=== PATIENT | female | born 1945 | race Caucasian/White ===

== ENCOUNTER 2019-06-09 10:21 | Inpatient (IN) | payer BC, MEDICARE ==
[2019-06-09] MEDS ORDERED: Azithromycin 500 MG VIAL ONE (10:53)
[2019-06-09] MEDS ORDERED: Morphine 4 MG/ML VIAL ONE (11:05)
[2019-06-09] MEDS ORDERED: Fentanyl 100 MCG/2 ML VIAL ONE ×2 (12:02→15:07)
[2019-06-09] MEDS ORDERED: Diabetic Tussin 200 MG/10 ML UDCUP PO PRN (13:22)
[2019-06-09] MEDS ORDERED: cloNIDine 0.1 MG TAB PO PRN (13:22)
[2019-06-09] MEDS ORDERED: Dextrose 5% in Water 1,000 ML IV PRN (13:22)
[2019-06-09] MEDS ORDERED: Calcium Carbonate 500 MG ChewTAB PO PRN (13:22)
[2019-06-09] MEDS ORDERED: Zolpidem Tartrate 5 MG TAB PO PRN (13:22)
[2019-06-09] MEDS ORDERED: Bisacodyl 10 MG SUPP PR PRN (13:22)
[2019-06-09] MEDS ORDERED: HumaLOG 300 UNITS/3 ML VIAL SC PRN (13:22)
[2019-06-09] MEDS ORDERED: Loperamide HCl 2 MG CAP PO PRN (13:22)
[2019-06-09] MEDS ORDERED: Acetaminophen 325 MG TAB PO PRN (13:22)
[2019-06-09] MEDS ORDERED: Loratadine 10 MG TAB PO PRN (13:22)
[2019-06-09] MEDS ORDERED: Cepastat Lozenges 1 LOZ PO PRN (13:22)
[2019-06-09] MEDS ORDERED: Senokot S 8.6-50 MG TAB PO PRN (13:22)
[2019-06-09] MEDS ORDERED: Sodium Chloride 0.65% Nasal 44 ML BOT EA NARE PRN (13:22)
[2019-06-09] MEDS ORDERED: Dextrose 50% Abboject 50 ML SYRINGE SLOW IVP PRN (13:22)
--- NOTE | 2019-06-09 13:46 | HP ---
PRIMARY CARE PHYSICIAN: Dr. Osmany Lantigua. REASON FOR ADMISSION: Transferred from [facility] for pneumonia, sepsis. HISTORY OF PRESENT ILLNESS: A 74-year-old female, who has underlying history of diabetes type 2, diabetic nephropathy and neuropathy as well as hypertension and dyslipidemia, who was taken to [facility] Emergency Room earlier today. The patient reports that around 3:00 a.m. last night, she woke up with chest pain, which was right-sided. The patient was not able to take deep breath. She was feeling shortness of breath. Chest pain was constant about 11/10 in intensity, which was increasing with respiration, associated with mild nausea. The patient initially refused to go to emergency room, but finally she agreed to go to local emergency room around 6:00 a.m. At [facility] Emergency Room, the patient had routine blood test done as well as investigation done. She had a chest x-ray, which showed cardiomegaly and left basilar lung opacity and right lower lung granuloma. She had CT chest without contrast due to renal insufficiency, which showed pericardial thickening, chronic interstitial lung changes and granulomatous disease. Routine blood test showed leukocytosis with left shift and creatinine was 1.88. The patient had very slightly elevated D-dimer, but the patient denies any lower extremity edema or calf tenderness. She does not have any immobilization. She does not have any hemoptysis. She does not have any upper or lower respiratory infection in the recent past. The patient also denies any urinary tract infection symptoms. She denies any constipation, diarrhea, melena, or hematochezia. Initially at [place] [facility], she was given pain medicine and empiric antibiotic therapy was given and Lovenox 1 mg/kg was also given. Fentanyl did not reduce her pain, but morphine reduced her pain from 11 to 8. Nitroglycerin did not help her pain at all. HOME MEDICATIONS: The patient's home medication is not verified, but the patient is on following medication as per report; 1. Fosamax 70 mg weekly. 2. Allopurinol 300 mg daily. 3. Lipitor 20 mg daily. 4. Vitamin D3, 50,000 units weekly. 5. Vitamin B12 daily. 6. Bentyl p.r.n. basis. 7. Trulicity injection every week. 8. Lasix 40 mg daily. 9. Gabapentin 300 mg p.o. twice daily. 10. Insulin as per sliding scale. 11. Xalatan eye drops. 12. Toprol-XL 50 mg daily. 13. Tramadol p.r.n. basis. 14. Maxzide one tablet daily. 15. Ambien 10 mg at night. REVIEW OF SYSTEMS: CONSTITUTIONAL: Negative for weight loss or gain, ability to conduct usual activities. SKIN: Negative for rash, itching. EYES: Negative for double vision, pain. ENT/MOUTH: Negative for nose bleeding, neck stiffness, pain, tenderness. CARDIOVASCULAR: Negative for palpitations, dyspnea on exertion, orthopnea. RESPIRATORY: Negative for shortness of breath, wheezing, cough, hemoptysis, fever or night sweats. GASTROINTESTINAL: Negative for poor appetite, abdominal pain, heartburn, nausea, vomiting, constipation, or diarrhea. GENITOURINARY: Negative for urgency, frequency, dysuria, nocturia. MUSCULOSKELETAL: Negative for pain, swelling. NEUROLOGIC/PSYCHIATRIC: Negative for anxiety, depression. ALLERGY/IMMUNOLOGIC: Negative for skin rash, bleeding tendency. Please see my HPI for pertinent positives and negatives. All other review of systems reviewed and negative except as mentioned in HPI. EMERGENCY ROOM COURSE: The patient is given nitroglycerin 0.4 mg, fentanyl 25 mcg, Ringer lactate 2 L, Rocephin 1 g, Lovenox 80 mg, morphine 4 mg, Zofran 4 mg. PAST MEDICAL HISTORY: History of bladder cancer, history of bilateral cataract, diabetes type 2, glaucoma, hypertension, dyslipidemia, osteoarthritis, diabetic neuropathy, diabetic nephropathy, chronic kidney disease stage 3, osteopenia/osteoporosis, hyperuricemia. PAST SURGICAL HISTORY: Bladder surgery x2, hernia repair, hysterectomy, tonsillectomy, umbilical hernia repair x3. PAST PSYCHIATRIC HISTORY: Reviewed and negative. FAMILY HISTORY: The patient is adopted and that is why she does not know any of her family history. ALLERGIES: IODINATED CONTRAST MEDIA, LYRICA. SOCIAL HISTORY: The patient is . She is former smoker. She denies any other illicit drug abuse. She denies any alcohol. PHYSICAL EXAMINATION: VITAL SIGNS: On arrival, blood pressure 168/67, pulse 114, respiratory rate 24, temperature 97.5, saturation 94%. Weight 185 pounds. GENERAL: The patient is currently alert and awake, no obvious acute distress. HEENT: Head; normocephalic and atraumatic. Eyes; pupils round and reactive to light. Extraocular muscle intact. ENT, oropharynx within normal limits. Moist mucous membranes. No oral lesion. No pharyngeal erythema. No exudate. NECK: Supple. No JVD. No thyromegaly. No carotid bruit. No jugular venous distention. LUNGS: Air entry reduced at the left base, but no obvious rales. No obvious rhonchi or wheezing heard. CARDIAC: S1 and S2 appears regular. No significant murmur. No gallop. No rub. ABDOMEN: Soft. Obesity present. Bowel sounds are present. Nontender. Nondistended. No organomegaly. No mass. No suprapubic tenderness. BACK: Unremarkable. No CVA tenderness. EXTREMITIES: Upper extremities; passive movement of all joints are normal. Lower extremities, no edema. Good distal pulsation. No calf tenderness. NEUROLOGIC: Nonfocal examination. SKIN: No skin rash. PSYCHIATRIC: Normal affect. LABORATORY DATA: Significant labs; blood test done at [facility]. EKG showed normal sinus rhythm, nonspecific ST-T changes. Sinus tachycardia noted. Chest x-ray showing cardiomegaly, left basilar lung opacity. CT chest showing pericardial thickening, chronic interstitial changes, and granulomatous disease. BMP; sodium 140, potassium 4.3, chloride 102, carbon dioxide 27, BUN 28, creatinine 1.88, glucose 110, calcium 9.5. LFT; AST 9, ALT 11, alkaline phosphatase 80, bilirubin 0.6, protein 7.4, albumin 4.1, lipase 20. Troponin less than 0.01. BNP 74. Lactic acid 2.9. INR 0.9. GFR 30. D-dimer 0.55. ASSESSMENT AND PLAN: 1. Chest pain. The patient has pleuritic chest pain on the right side. Her chest x-ray showing left lower lobe opacity that cannot explain her right-sided pain. CT chest also showing pericardial thickening and suspecting pericarditis. We will check CRP and ESR. We are going to treat empirically with pericarditis as well as we are also going to treat empirically for left lower lobe pneumonia and we will rule out underlying thromboembolic disorder. 2. Left lower lobe pneumonia. The patient's chest x-ray is showing left basilar opacity. She has leukocytosis, lactic acidosis, though the patient does not have any chronic recent upper or lower respiratory symptoms, but she has postnasal drip, community-acquired pneumonia is likely. We will cover with Rocephin 1 g q.24 hours and levofloxacin 750 mg every other day based on renal dose. 3. Pericarditis. The patient has pericardial thickening on a CT chest. We will obtain echocardiography and we will treat empirically with colchicine 0.6 mg p.o. daily. 4. Rule out thromboembolic disorder. The patient also has possibility of a pulmonary embolism, though less likely based on overall picture, but given tachycardia, pleuritic chest pain, and shortness of breath. We will rule out that possibility. Because of renal function and iodine allergy, we cannot do CT angiography and that is why we will obtain V/Q scan, lower extremity ultrasound, and echocardiography. If any abnormal finding supports or suspects diagnosis of pulmonary embolism, in that case we will consider Pulmonary consultation if needed. 5. Diabetes type 2. We will continue the patient's home medication, insulin as per sliding scale per protocol. Diabetic diet will be given. 6. Glaucoma. We will continue Xalatan eye drops as per home dosage. 7. Hypertension. We will continue Toprol-XL as per home dosage. 8. Dyslipidemia. We will continue Lipitor 20 mg p.o. at bedtime. 9. Hyperuricemia. We will check uric acid tomorrow and continue allopurinol as per home dosage. 10. Chronic kidney disease stage 3. We will repeat BMP tomorrow. We will give her gentle IV fluid at 70 mL/h. 11. Deep venous thrombosis prophylaxis. Heparin 5000 units subcu twice daily. 12. GI prophylaxis. Pepcid 20 mg daily. 13. Code status: The patient is full code. The patient's is surrogate decision maker. Note: The patient already received Lovenox 1 mg/kg at [facility] and that is why we will start heparin from tomorrow for DVT prophylaxis. Job ID: [id number]
[2019-06-09] MEDS: cefTRIAXone\\ROCEPHIN 1 GM in Sodium Chloride 0.9% 100 ML IVPB SCH (17:47)
[2019-06-09] MEDS: Sodium Chloride 0.9% 1,000 ML IV SCH ×2 (17:49→22:58)
[2019-06-09 18:09] VITALS: BMI 38.1
[2019-06-09] MEDS: HYDROcodone/Acetaminophen 5/325 mg Tablet PO PRN ×2 (18:09→22:57)
[2019-06-09] MEDS: HumaLOG 300 UNITS/3 ML VIAL SC PRN (18:42)
[2019-06-09 19:13] LABS: Bilirubin Negative (Negative); Blood, Urine 2+ (Negative); Clarity Turbid (Clear); Glucose, Urine (Dipstick) Normal (Negative); Leukocyte 500 Leu/uL (Negative); Nitrite Negative (Negative); Protein, Urine (Dipstick) 50 mg/dL (Neg-Trace); WBC/HPF Greater than 50 HPF (0-3)
[2019-06-09 19:19] LABS: Bacteria/HPF 2+ HPF (None Seen)
[2019-06-09] MEDS: Heparin 5,000 UNITS/ML VIAL SC SCH (21:17)
[2019-06-09] MEDS: Colchicine 0.6 MG TAB PO SCH ×2 (21:26→23:28)
[2019-06-10] MEDS: HYDROcodone/Acetaminophen 5/325 mg Tablet PO PRN (06:12)
[2019-06-10 06:22] LABS: #Lymphocytes 1.1 thou/uL (1.20-3.40); #Monocytes 1.8 thou/uL (0.11-0.59); #Neutrophils 13.1 thou/uL (1.40-6.50); %Eosinophils 0.3 % (0.0-10.0); %Neutrophils 81.7 % (42.0-75.0); Hemoglobin 11.9 g/dL (12.0-16.0); Mean Corpuscular HGB CONC 32.5 g/dL (32.0-36.0); Mean Corpuscular Hemoglobin 31.8 pg (27.0-31.0); Mean Corpuscular Volume 97.9 fL (78.0-98.0); Mean Platelet Volume 8.7 fL (7.4-10.4); Platelet Count 191 thou/uL (130-400); RBC Distribution Width 14.5 % (11.5-14.5); Red Blood Cell (RBC) Count 3.74 mill/uL (4.20-5.40)
[2019-06-10 06:38] LABS: ALT (SGPT) 11 U/L (8-55); AST (SGOT) 10 U/L (5-34); Albumin 3.8 g/dL (3.4-4.8); Alkaline Phosphatase 70 U/L (40-150); Anion Gap 16 mmol/L (10-20); BUN (Urea Nitrogen) 37 mg/dL (9.8-20.1); Bilirubin, Total 0.7 mg/dL (0.2-1.2); Calc. Creatinine Clearance 41 mL/min (70-130); Calcium 9.2 mg/dL (7.8-10.44); Carbon Dioxide 24 mmol/L (23-31); Chloride 101 mmol/L (98-107); Estimated GFR-MDRD 28; Globulin 2.9 g/dL (2.4-3.5); Glucose 215 mg/dL (83-110); Potassium 4.8 mmol/L (3.5-5.1); Protein, Total 6.7 g/dL (6.0-8.3); Sodium 136 mmol/L (136-145); Uric Acid 4.5 mg/dL (2.6-6.0)
[2019-06-10] MEDS ORDERED: Dicyclomine 20 MG TAB PO PRN (08:17)
[2019-06-10] MEDS ORDERED: Gabapentin 300 MG CAP PO PRN (08:17)
--- NOTE | 2019-06-10 08:24 | ULT ---
EXAM: Bilateral lower extremity venous duplex ultrasound with color and spectral Doppler imaging: HISTORY: Swelling and edema COMPARISON: None FINDINGS: Exam performed from the groin to the ankle including the visualized greater saphenous, common femoral , superficial femoral, profunda femoral, popliteal, trifurcation, and posterior tibial veins. There is phasic flow with normal compressibility and normal augmentation at all examined levels. No evidence for intraluminal thrombus. IMPRESSION: No evidence for deep venous thrombosis.
[2019-06-10] MEDS: Famotidine 20 MG TAB PO SCH (09:01)
[2019-06-10] MEDS: Allopurinol 300 MG TAB PO SCH (09:02)
[2019-06-10] MEDS: Saccharomyces boulardii 250 MG CAP PO SCH (09:02)
[2019-06-10] MEDS: Colchicine 0.6 MG TAB PO SCH ×3 (09:02→20:15)
[2019-06-10] MEDS: Atorvastatin Calcium 20 MG TAB PO SCH (09:03)
[2019-06-10] MEDS: Heparin 5,000 UNITS/ML VIAL SC SCH (09:03)
[2019-06-10] MEDS: HumuLIN 70/30 (300 UNITS/3 ML VIAL) SC SCH ×2 (09:05→20:18)
[2019-06-10] MEDS ORDERED: Metoclopramide HCl 10 MG/2 ML VIAL IVP PRN (09:34)
[2019-06-10] MEDS ORDERED: Furosemide 40 MG/4 ML VIAL SLOW IVP SCH ×2 (09:45→16:45)
--- NOTE | 2019-06-10 09:57 | PDOC.HOSPP ---
- Subjective Encounter Date: 06/10/19 Encounter Time: 08:00 Subjective: pt has dyspnea and has tachycardia, has pleuritic discomfort, no fever Patient seen and examined. No overnight events - Objective Vital Signs & Weight: Vital Signs (12 hours) Temp Pulse Resp BP BP Pulse Ox 06/10/19 08:50 98.3 F 123 H 22 H 148/80 H 91 L 06/10/19 04:11 92 L 06/10/19 04:00 97.5 F L 99 22 H 138/70 96 06/09/19 23:20 97.7 F 76 20 129/91 H 93 L Weight Weight 202 lb 8 oz I&O: 06/09/19 06/10/19 06/11/19 06:59 06:59 06:59 Intake Total 600 Output Total 600 Balance 0 Result Diagrams: 06/10/19 06:09 06/10/19 06:09 Additional Labs: Accuchecks 06/09/19 06/09/19 21:32 18:03 POC Glucose 278 H 241 H Radiology Reviewed by me: Yes EKG Reviewed by me: Yes (tachycardia) Hospitalist ROS - Review of Systems Constitutional: reports: weakness, malaise. denies: fever, chills, sweats, other Eyes: denies: pain, vision change, conjunctivae inflammation, eyelid inflammation, redness, other ENT: denies: ear pain, ear discharge, nose pain, nose discharge, nose congestion , mouth pain, mouth swelling, throat pain, throat swelling, other Respiratory: reports: cough, shortness of breath, SOB with excertion, pleuritic pain. denies: dry, hemoptysis, sputum, wheezing, other Cardiovascular: denies: chest pain, palpitations, orthopnea, paroxysmal noc. dyspnea, edema, light headedness, other Gastrointestinal: denies: nausea, vomitting, abdominal pain, diarrhea, constipation, melena, hematochezia, other Genitourinary: denies: dysuria, frequency, incontinence, hematuria, retention, other Musculoskeletal: denies: neck pain, shoulder pain, arm pain, back pain, hand pain, leg pain, foot pain, other - Medication Medications: Active Medications Generic Name Dose Route Start Last Admin Trade Name Freq PRN Reason Stop Dose Admin Hydrocodone Bitart/Acetaminophen 1 tab 06/09/19 13:22 06/10/19 06:12 [place] 5/325 PO 1 tab Q4H PRN Administration Moderate Pain (4-6) Allopurinol 300 mg 06/10/19 09:00 06/10/19 09:02 Zyloprim PO 300 mg DAILY NARINDER Administration Atorvastatin Calcium 20 mg 06/10/19 09:00 06/10/19 09:03 Lipitor PO 20 mg DAILY NARINDER Administration Colchicine 0.6 mg 06/09/19 21:00 06/10/19 09:02 Colchicine PO Not Given BID NARINDER Famotidine 20 mg 06/10/19 09:00 06/10/19 09:01 Pepcid PO 20 mg DAILY NARINDER Administration Heparin Sodium (Porcine) 5,000 units 06/09/19 21:00 06/10/19 09:03 Heparin SC 5,000 units BID NARINDER Administration Levofloxacin 750 mg/ Device 150 mls @ 100 mls/hr 06/09/19 17:00 06/09/19 18: 10 IVPB 150 mls Q2D@1700 NARINDER Administration Ceftriaxone Sodium 1 gm/ 100 mls @ 200 mls/hr 06/09/19 16:00 06/09/19 17:47 Sodium Chloride IVPB Not Given Q24HR NARINDER Insulin Human Isoph/Insulin Regular 60 units 06/10/19 09:00 06/10/19 09:05 Humulin 70/30 SC 60 unit BID NARINDER Administration Insulin Human Lispro 0 units 06/09/19 13:22 06/09/19 18:42 Humalog SC 4 units .MODERATE SLIDING SC PRN Administration Moderate Correctional Scale Metoprolol Succinate 50 mg 06/10/19 09:00 06/10/19 09:02 Toprol Xl PO 50 mg DAILY NARINDER Administration Saccharomyces Boulardii 250 mg 06/10/19 09:00 06/10/19 09:02 Florastor PO 250 mg DAILY NARINDER Administration - Exam General Appearance: NAD, awake alert Eye: PERRL, anicteric sclera ENT: normocephalic atraumatic, no oropharyngeal lesions Neck: supple, symmetric, no JVD Heart: RRR, no murmur, no gallops, no rubs Heart - other findings: tachycardia Respiratory: rales Respiratory - other findings: basal rales and reduced air entry Gastrointestinal: soft, non-tender, non-distended, normal bowel sounds, no palpable masses, no hepatomegaly, no splenomegaly Extremities: no cyanosis, no clubbing, 1+ LE edema Skin: normal turgor, no lesions, no rashes Neurological: CN's grossly intact, normal sensation to touch, no focal deficits Musculoskeletal: normal tone, normal strength, no muscle wasting Psychiatric: normal affect, normal behavior, A&O x 3 Hosp A/P (1) Acute respiratory failure with hypoxia Code(s): J96.01 - ACUTE RESPIRATORY FAILURE WITH HYPOXIA Status: Acute Plan: requiring oxygen (2) Community acquired bacterial pneumonia Code(s): J15.9 - UNSPECIFIED BACTERIAL PNEUMONIA Status: Acute Plan: on rocephin and levaquin (3) Pericarditis Code(s): I31.9 - DISEASE OF PERICARDIUM, UNSPECIFIED Status: Acute Qualifiers: Pericarditis type: idiopathic Chronicity: acute Qualified Code(s): I30.0 - Acute nonspecific idiopathic pericarditis Plan: on colchicine, cardiology consulted, echo pending (4) UTI (urinary tract infection) Status: Acute Plan: will send urine culture, on rocephin and levaquin (5) Anemia, normocytic normochromic Code(s): D64.9 - ANEMIA, UNSPECIFIED Status: Chronic (6) CKD (chronic kidney disease) stage 3, GFR 30-59 ml/min Code(s): N18.3 - CHRONIC KIDNEY DISEASE, STAGE 3 (MODERATE) Status: Chronic (7) Diabetes type 2, controlled Code(s): E11.9 - TYPE 2 DIABETES MELLITUS WITHOUT COMPLICATIONS Status: Chronic (8) Diabetic neuropathy Code(s): E11.40 - TYPE 2 DIABETES MELLITUS WITH DIABETIC NEUROPATHY, UNSP Status: Chronic (9) Dyslipidemia Code(s): E78.5 - HYPERLIPIDEMIA, UNSPECIFIED Status: Chronic (10) Glaucoma Code(s): H40.9 - UNSPECIFIED GLAUCOMA Status: Chronic (11) Hypertension Code(s): I10 - ESSENTIAL (PRIMARY) HYPERTENSION Status: Chronic (12) Hyperuricemia Code(s): E79.0 - HYPERURICEMIA W/O SIGNS OF INFLAM ARTHRIT AND TOPHACEOUS DIS Status: Chronic (13) Obesity (BMI 30-39.9) Code(s): E66.9 - OBESITY, UNSPECIFIED Status: Chronic - Plan old records reviewed/req, continue antibiotics, respiratory therapy, incentive spirometry, DVT proph w/heparin home medication has been reconciled medication reviewed as above symptomatic treatment will give one dose of lasix to help with her dyspnea V/Q scan and echo pending continue empiric antibiotic and follow culture cardiology consult US leg is negative get chest xray
--- NOTE | 2019-06-10 12:19 | RAD ---
Exam: Chest 2 views: HISTORY: Dyspnea COMPARISON: 09/26/2009 FINDINGS: Cardiomegaly with bilateral pleural effusions and bilateral mostly linear parenchymal changes in the mid and lower lung zones raising concern for vascular congestion and some acute edema. Stable nodule in the right lower lobe. No new confluent pneumonia. IMPRESSION: Cardiomegaly with bilateral pleural effusions and bilateral linear parenchymal changes possibly repre senting vascular congestion and some mild edema. No new confluent pneumonia. Old granuloma calcification in the right lower lobe.
[2019-06-10] MEDS ORDERED: Lorazepam 2 MG/ML VIAL SLOW IVP SCH (14:00)
[2019-06-10] MEDS: HumaLOG 300 UNITS/3 ML VIAL SC PRN (14:00)
[2019-06-10] MEDS: cefTRIAXone\\ROCEPHIN 1 GM in Sodium Chloride 0.9% 100 ML IVPB SCH (17:44)
--- NOTE | 2019-06-10 18:10 | NM ---
VQ SCAN: History: Chest pain. Technique: Ventilation perfusion scan was performed using 11.3 mCi Xenon 133 by inhalation. Ventilati on study performed with intravenous administration of 5.2 mCi Technetium 99M MAA. FINDINGS: Correlation is made with chest radiograph of same date. There is fairly homogeneous distribution in the lung anthony on ventilation/perfusion scans without mi smatched pleural based wedge shaped segmental or subsegmental perfusion defects. There is mild trace retention in the washout phase on both sides. IMPRESSION: Low probability for pulmonary embolism. POS: NEFTALY
[2019-06-10] MEDS: Apixaban 5 MG TAB PO SCH (20:16)
[2019-06-10] MEDS: Latanoprost 0.005% Ophth Soln 2.5 ml Bottle EA EYE SCH (21:40)
--- NOTE | 2019-06-10 22:08 | CON ---
DATE OF CONSULTATION: HISTORY OF PRESENT ILLNESS: The patient is a 74-year-old woman with a history of hypertension and diabetes mellitus, who presents with dyspnea and acute right -sided chest discomfort. The patient was in her usual state of health when she developed a severe right-sided chest discomfort' This began 2 days ago. The discomfort has been persistent. She states it is clearly worse when she takes a deep breath. The patient went to the [facility] and was referred here for further evaluation. The patient reports feeling dyspneic. The patient denies having any PND or orthopnea. PAST MEDICAL HISTORY: 1. Diabetes mellitus. 2. Hypertension. 3. Dyslipidemia. 4. History of osteoarthritis. 5. History of bladder carcinoma. 6. Chronic renal insufficiency. 7. Diabetes mellitus. 8. Glaucoma. PAST SURGICAL HISTORY: Hysterectomy, bladder surgery, tonsillectomy, and hernia repair. SOCIAL HISTORY: Former smoker. ALLERGIES: IODINE AND LYRICA. MEDICATIONS: See nursing list. FAMILY HISTORY: She is adopted. REVIEW OF SYSTEMS: Ten-point system otherwise unremarkable. PHYSICAL EXAMINATION: GENERAL: This is an obese woman, in mild distress. VITAL SIGNS: Blood pressure is 140/69, heart rate is 117. NECK: Full. LUNGS: Have crackles in the left base. HEART: RRR nl S1 S2 ABDOMEN: Distended. EXREMITIES: Mild bilateral edema. LABORATORY RESULTS: Sodium 136, potassium 4.8, chloride 101, bicarbonate 24, BUN 37, creatinine 1.8, glucose 215. White blood cell count 16.0, hematocrit 11.9, hematocrit 36.6, platelets 191. Her EKG reveals her to have sinus tachycardia with an otherwise unremarkable ECG. Her CT scan revealed evidence of possible pericardial thickening. PLAN: This patient presents with right-sided chest pain suggestive of pleurisy.This pain has been persistent for nearly 2 days. Her chest x-ray revealed possible infiltrate. The patient being treated with IV antibiotics. The patient also scheduled to undergo a V/Q scan to rule out pulmonary embolus. From a cardiac standpoint, we will review the patient's echocardiogram and see if there is evidence of pulmonary hypertension. Further recommendations will follow. Job ID: [id number] MTDD
[2019-06-11 05:58] LABS: #Eosinphils 0.1 thou/uL (0.0-0.7); #Lymphocytes 1.9 thou/uL (1.20-3.40); #Monocytes 1.6 thou/uL (0.11-0.59); #Neutrophils 11.7 thou/uL (1.40-6.50); %Basophils 0.1 % (0.0-1.0); %Eosinophils 0.4 % (0.0-10.0); %Lymphocytes 12.3 % (21.0-51.0); %Monocytes 10.3 % (0.0-10.0); %Neutrophils 76.9 % (42.0-75.0); Hemoglobin 11.7 g/dL (12.0-16.0); Mean Corpuscular HGB CONC 33.3 g/dL (32.0-36.0); Mean Corpuscular Hemoglobin 32.2 pg (27.0-31.0); Mean Corpuscular Volume 96.9 fL (78.0-98.0); Mean Platelet Volume 8.3 fL (7.4-10.4); Platelet Count 218 thou/uL (130-400); RBC Distribution Width 14.3 % (11.5-14.5); Red Blood Cell (RBC) Count 3.64 mill/uL (4.20-5.40); White Blood Cell (WBC) Count 15.2 thou/uL (4.8-10.8)
[2019-06-11 06:17] LABS: Anion Gap 14 mmol/L (10-20); BUN (Urea Nitrogen) 40 mg/dL (9.8-20.1); Calc. Creatinine Clearance 40 mL/min (70-130); Calcium 9.7 mg/dL (7.8-10.44); Carbon Dioxide 28 mmol/L (23-31); Chloride 99 mmol/L (98-107); Estimated GFR-MDRD 27; Glucose 61 mg/dL (83-110); Potassium 3.4 mmol/L (3.5-5.1); Sodium 138 mmol/L (136-145)
[2019-06-11] MEDS: Colchicine 0.6 MG TAB PO SCH ×2 (08:47→20:24)
[2019-06-11] MEDS: Atorvastatin Calcium 20 MG TAB PO SCH (08:47)
[2019-06-11] MEDS: Saccharomyces boulardii 250 MG CAP PO SCH (08:47)
[2019-06-11] MEDS: Apixaban 5 MG TAB PO SCH ×2 (08:47→20:24)
[2019-06-11] MEDS: Allopurinol 300 MG TAB PO SCH (08:47)
[2019-06-11] MEDS: Famotidine 20 MG TAB PO SCH (08:47)
[2019-06-11] MEDS: HumuLIN 70/30 (300 UNITS/3 ML VIAL) SC SCH ×2 (09:50→20:31)
[2019-06-11] MEDS: HumaLOG 300 UNITS/3 ML VIAL SC PRN (11:46)
--- NOTE | 2019-06-11 15:27 | PDOC.HOSPP ---
- Subjective Encounter Date: 06/11/19 Encounter Time: 15:24 Subjective: Wheezing, + SOB, feeling better with chest pain - Objective Vital Signs & Weight: Vital Signs (12 hours) Temp Pulse Resp BP BP Pulse Ox 06/11/19 11:41 99.3 F 96 22 H 140/61 94 L 06/11/19 08:40 98.7 F 99 22 H 147/63 H 94 L 06/11/19 04:00 98.1 F 107 H 24 H 145/56 H 92 L Weight Weight 202 lb 8 oz I&O: 06/10/19 06/11/19 06/12/19 06:59 06:59 06:59 Intake Total 600 1410 Output Total 600 2085 Balance 0 -675 Result Diagrams: 06/11/19 05:43 06/11/19 05:43 Additional Labs: Accuchecks 06/11/19 06/11/19 06/11/19 11:42 09:52 05:48 POC Glucose 195 H 169 H 62 L 06/10/19 06/10/19 06/10/19 20:39 17:56 05:29 POC Glucose 132 H 118 H 226 H Hospitalist ROS - Medication Medications: Active Medications Generic Name Dose Route Start Last Admin Trade Name Freq PRN Reason Stop Dose Admin Hydrocodone Bitart/Acetaminophen 1 tab 06/09/19 13:22 06/10/19 06:12 [place] 5/325 PO 1 tab Q4H PRN Administration Moderate Pain (4-6) Allopurinol 300 mg 06/10/19 09:00 06/11/19 08:47 Zyloprim PO 300 mg DAILY NARINDER Administration Apixaban 5 mg 06/10/19 21:00 06/11/19 08:47 Eliquis PO 5 mg BID NARINDER Administration Atorvastatin Calcium 20 mg 06/10/19 09:00 06/11/19 08:47 Lipitor PO 20 mg DAILY NARINDER Administration Colchicine 0.6 mg 06/09/19 21:00 06/11/19 08:47 Colchicine PO Not Given BID NARINDER Famotidine 20 mg 06/10/19 09:00 06/11/19 08:47 Pepcid PO 20 mg DAILY NARINDER Administration Gabapentin 300 mg 06/10/19 08:17 06/11/19 13:41 Neurontin PO 300 mg TID PRN Administration Pain Levofloxacin 750 mg/ Device 150 mls @ 100 mls/hr 06/09/19 17:00 06/09/19 18: 10 IVPB 150 mls Q2D@1700 NARINDER Administration Insulin Human Isoph/Insulin Regular 60 units 06/10/19 09:00 06/11/19 09:50 Humulin 70/30 SC 60 unit BID NARINDER Administration Insulin Human Lispro 0 units 06/09/19 13:22 06/11/19 11:46 Humalog SC 2 units .MODERATE SLIDING SC PRN Administration Moderate Correctional Scale Latanoprost 1 drop 06/10/19 21:00 06/10/19 21:40 Xalatan 0.005% Ophth Soln EA EYE 1 drp HS NARINDER Administration Metoclopramide HCl 5 mg 06/10/19 09:34 06/10/19 15:54 Reglan IVP 5 mg Q6H PRN Administration .PRN Metoprolol Succinate 50 mg 06/10/19 09:00 06/11/19 08:47 Toprol Xl PO 50 mg DAILY NARINDER Administration Saccharomyces Boulardii 250 mg 06/10/19 09:00 06/11/19 08:47 Florastor PO 250 mg DAILY NARINDER Administration - Exam General Appearance: awake alert Eye: PERRL, anicteric sclera ENT: normocephalic atraumatic, no oropharyngeal lesions, moist mucosa Neck: supple, symmetric, no JVD, no thyromegaly, no lymphadenopathy Heart: RRR, no murmur, no gallops, no rubs, normal peripheral pulses Respiratory: rales, wheezes Gastrointestinal: soft, non-tender, non-distended, normal bowel sounds Extremities: no cyanosis, no clubbing, no edema Skin: normal turgor, no lesions, no rashes Neurological: CN's grossly intact, normal sensation to touch, no weakness, no focal deficits, no new deficit Musculoskeletal: normal tone, normal strength, no muscle wasting Psychiatric: normal affect, normal behavior, A&O x 3 Hosp A/P - Plan plan discussed w/ family, continue antibiotics, dc IVF old records reviewed/req, continue antibiotics, respiratory therapy, incentive spirometry, DVT proph w/heparin Pneumonia with chest pain acute respiratory distress: V/Q scan negative and echo with reserved EF Chest Xray showing acute pulm edema US leg is negative continue empiric Levaquin stop Rocephin as urine cx are negative cardiology consult Start patient on [place] oxygen, lasix low dose and PRN breathing treatment, if no improvement will consider small dose steroids HTN: Continue home metoprolol Afib: Continue Metoprolol and Apixaban Diabetes: Undcpfic89/30 with accuchecks and SS JESSICA: TREND CREATININE, ITS SLOWLY INCREASING
[2019-06-11] MEDS ORDERED: Furosemide 20 MG/2 ML VIAL SLOW IVP SCH (16:00)
[2019-06-11] MEDS: Latanoprost 0.005% Ophth Soln 2.5 ml Bottle EA EYE SCH (20:25)
[2019-06-11] MEDS: traMADol HCl 50 MG TAB PO PRN (20:29)
[2019-06-11] MEDS: Guaifenesin DM 100-10/5 ML UDCUP PO PRN (23:05)
[2019-06-12] MEDS: HumuLIN 70/30 (300 UNITS/3 ML VIAL) SC SCH ×2 (09:16→22:18)
[2019-06-12] MEDS: Saccharomyces boulardii 250 MG CAP PO SCH (09:32)
[2019-06-12] MEDS: Allopurinol 300 MG TAB PO SCH (09:32)
[2019-06-12] MEDS: Famotidine 20 MG TAB PO SCH (09:33)
[2019-06-12] MEDS: Apixaban 5 MG TAB PO SCH ×2 (09:34→20:49)
[2019-06-12] MEDS: Colchicine 0.6 MG TAB PO SCH ×2 (09:34→22:03)
[2019-06-12] MEDS: Atorvastatin Calcium 20 MG TAB PO SCH (09:34)
[2019-06-12] MEDS ORDERED: Furosemide 20 MG/2 ML VIAL SLOW IVP SCH (12:15)
[2019-06-12] MEDS: Guaifenesin DM 100-10/5 ML UDCUP PO PRN (12:51)
[2019-06-12] MEDS: HumaLOG 300 UNITS/3 ML VIAL SC PRN ×2 (12:52→17:50)
--- NOTE | 2019-06-12 13:22 | PDOC.HOSPP ---
- Subjective Encounter Date: 06/12/19 Encounter Time: 13:20 Subjective: iMPROVED BREATHING WITH BREATHING TREATMENT AND A DOSE OF LASIX. dESATURATING WHEN WALKING WITHOUT oXYGEN DOWN TO 70% - Objective Vital Signs & Weight: Vital Signs (12 hours) Temp Pulse Pulse Pulse Pulse Resp BP 06/12/19 10:10 97 111 H 100 126/60 06/12/19 07:42 98.1 F 98 22 H 06/12/19 04:00 98.6 F 105 H 20 BP BP BP Pulse Ox Pulse Ox Pulse Ox Pulse Ox 06/12/19 10:10 128/64 93 L 70 L 91 L 06/12/19 07:42 144/62 H 98 06/12/19 04:00 129/58 L 93 L Weight Weight 202 lb 8 oz I&O: 06/11/19 06/12/19 06/13/19 06:59 06:59 06:59 Intake Total 1410 1550 Output Total 9745 1030 Balance -675 900 Result Diagrams: 06/11/19 05:43 06/11/19 05:43 Additional Labs: Accuchecks 06/12/19 06/12/19 06/12/19 11:22 09:09 05:34 POC Glucose 174 H 187 H 81 06/11/19 06/11/19 20:39 17:43 POC Glucose 205 H 197 H Hospitalist ROS - Medication Medications: Active Medications Generic Name Dose Route Start Last Admin Trade Name Freq PRN Reason Stop Dose Admin Hydrocodone Bitart/Acetaminophen 1 tab 06/09/19 13:22 06/10/19 06:12 [place]berry 5/325 PO 1 tab Q4H PRN Administration Moderate Pain (4-6) Albuterol/Ipratropium 3 ml 06/11/19 19:00 06/12/19 10:12 Duoneb NEB Not Given [id number] NARINDER Allopurinol 300 mg 06/10/19 09:00 06/12/19 09:32 Zyloprim PO 300 mg DAILY NARINDER Administration Apixaban 5 mg 06/10/19 21:00 06/12/19 09:34 Eliquis PO 5 mg BID NARINDER Administration Atorvastatin Calcium 20 mg 06/10/19 09:00 06/12/19 09:34 Lipitor PO 20 mg DAILY NARINDER Administration Colchicine 0.6 mg 06/09/19 21:00 06/12/19 09:34 Colchicine PO Not Given BID NARINDER Famotidine 20 mg 06/10/19 09:00 06/12/19 09:33 Pepcid PO 20 mg DAILY NARINDER Administration Furosemide 20 mg 06/12/19 12:15 06/12/19 12:58 Lasix SLOW IVP 06/12/19 14:15 20 mg NOW NARINDER Administration Gabapentin 300 mg 06/10/19 08:17 06/11/19 13:41 Neurontin PO 300 mg TID PRN Administration Pain Guaifenesin/Dextromethorphan 15 ml 06/09/19 13:22 06/12/19 12:51 Robitussin Dm PO 15 ml Q4H PRN Administration Cough Levofloxacin 750 mg/ Device 150 mls @ 100 mls/hr 06/09/19 17:00 06/11/19 16: 55 IVPB 150 mls Q2D@1700 NARINDER Administration Insulin Human Isoph/Insulin Regular 60 units 06/10/19 09:00 06/12/19 09:16 Humulin 70/30 SC 60 unit BID NARINDER Administration Insulin Human Lispro 0 units 06/09/19 13:22 06/12/19 12:52 Humalog SC 2 units .MODERATE SLIDING SC PRN Administration Moderate Correctional Scale Insulin Human Lispro 0 units 06/09/19 13:22 06/11/19 20:42 Humalog SC 2 unit .BEDTIME SLIDING SC PRN Administration Bedtime Correctional Scale Latanoprost 1 drop 06/10/19 21:00 06/11/19 20:25 Xalatan 0.005% Ophth Soln EA EYE 1 drp HS NARINDER Administration Metoclopramide HCl 5 mg 06/10/19 09:34 06/10/19 15:54 Reglan IVP 5 mg Q6H PRN Administration .PRN Metoprolol Succinate 50 mg 06/10/19 09:00 06/12/19 09:34 Toprol Xl PO 50 mg DAILY NARINDER Administration Saccharomyces Boulardii 250 mg 06/10/19 09:00 06/12/19 09:32 Florastor PO 250 mg DAILY NARINDER Administration Tramadol HCl 50 mg 06/10/19 08:17 06/11/19 20:29 Ultram PO 50 mg TID PRN Administration Pain - Exam General Appearance: awake alert General - other findings: MORBIDLY OBESE Eye: PERRL, anicteric sclera ENT: normocephalic atraumatic, no oropharyngeal lesions, moist mucosa Neck: supple, symmetric, no JVD, no thyromegaly, no lymphadenopathy Heart: RRR, no murmur, no gallops, no rubs, normal peripheral pulses Respiratory: rales, wheezes Gastrointestinal: soft, non-tender, non-distended, normal bowel sounds Extremities: no cyanosis, no clubbing, no edema Skin: normal turgor, no lesions, no rashes Neurological: CN's grossly intact, normal sensation to touch, no weakness, no focal deficits Musculoskeletal: normal tone, normal strength, no muscle wasting Psychiatric: normal affect, normal behavior, A&O x 3 Hosp A/P - Plan old records reviewed/req, continue antibiotics, respiratory therapy, incentive spirometry, DVT proph w/heparin Pneumonia with chest pain acute respiratory distress: V/Q scan negative and echo with reserved EF Chest Xray showing acute pulm edema US leg is negative continue empiric Levaquin stop Rocephin as urine cx are negative cardiology consult Start patient on [place] oxygen, lasix low dose and PRN breathing treatment, if no improvement will consider small dose steroids HTN: Continue home metoprolol Afib: Continue Metoprolol and Apixaban Diabetes: Apakxenq86/30 with accuchecks and SS JESSICA: TREND CREATININE, ITS SLOWLY INCREASING, will stop Lasix if required May require Oxygen for a short while, will consult SW if home Oxygen is required Possible DC in 1-2 days
[2019-06-12] MEDS: traMADol HCl 50 MG TAB PO PRN (15:17)
[2019-06-12] MEDS: Latanoprost 0.005% Ophth Soln 2.5 ml Bottle EA EYE SCH (20:50)
[2019-06-13] MEDS: traMADol HCl 50 MG TAB PO PRN ×2 (01:30→13:53)
[2019-06-13 05:30] LABS: Hemoglobin 11.6 g/dL (12.0-16.0); Mean Corpuscular HGB CONC 33.9 g/dL (32.0-36.0); Mean Corpuscular Hemoglobin 32.3 pg (27.0-31.0); Mean Corpuscular Volume 95.3 fL (78.0-98.0); Mean Platelet Volume 8.2 fL (7.4-10.4); Platelet Count 237 thou/uL (130-400); RBC Distribution Width 14.3 % (11.5-14.5); Red Blood Cell (RBC) Count 3.59 mill/uL (4.20-5.40); White Blood Cell (WBC) Count 10.6 thou/uL (4.8-10.8)
[2019-06-13 05:52] LABS: Anion Gap 18 mmol/L (10-20); BUN (Urea Nitrogen) 49 mg/dL (9.8-20.1); Calc. Creatinine Clearance 35 mL/min (70-130); Calcium 9.4 mg/dL (7.8-10.44); Carbon Dioxide 25 mmol/L (23-31); Chloride 99 mmol/L (98-107); Estimated GFR-MDRD 23; Glucose 160 mg/dL (83-110); Sodium 139 mmol/L (136-145)
[2019-06-13 05:56] LABS: Potassium 2.9 mmol/L (3.5-5.1)
[2019-06-13] MEDS ORDERED: Potassium Chloride 20 MEQ TAB PO SCH ×2 (07:15→14:45)
[2019-06-13] MEDS: Saccharomyces boulardii 250 MG CAP PO SCH (08:23)
[2019-06-13] MEDS: Famotidine 20 MG TAB PO SCH (08:23)
[2019-06-13] MEDS: Colchicine 0.6 MG TAB PO SCH ×2 (08:23→20:42)
[2019-06-13] MEDS: Atorvastatin Calcium 20 MG TAB PO SCH (08:23)
[2019-06-13] MEDS: Allopurinol 300 MG TAB PO SCH (08:23)
[2019-06-13] MEDS: Apixaban 5 MG TAB PO SCH ×2 (08:23→20:42)
[2019-06-13] MEDS: HumuLIN 70/30 (300 UNITS/3 ML VIAL) SC SCH ×2 (08:24→20:42)
[2019-06-13] MEDS ORDERED: Furosemide 20 MG/2 ML VIAL SLOW IVP SCH (09:00)
[2019-06-13] MEDS: HumaLOG 300 UNITS/3 ML VIAL SC PRN (11:50)
--- NOTE | 2019-06-13 12:46 | PQF ---
DATE: 06-13-19 ATTN: DR. LATRICE STEINER Please exercise your independent, professional judgment in responding to the clarification form. Clinical indicators are provided on the bottom of this form for your review Please check appropriate box(s) to clarify if the following diagnosis has been ruled in or ruled out: SEPSIS [ x ] Ruled in diagnosis [ x] Continue to treat [ ] Resolved [ ] Ruled out diagnosis [ ] Other diagnosis [ ] Unable to determine In addition, please specify: Present on Admission (POA): [x ] Yes [ ] No [ ] Unable to determine For continuity of documentation, please document condition throughout progress notes and discharge summary. Thank You. CLINICAL INDICATORS - SIGNS / SYMPTOMS / LABS: ER DX 06-09-19: SEVERE SEPSIS, PNEUMONIA, R/O PULMONARY EMBOLISM ER NOTE 06-09-19: LACTIC 2.9, ADMISSION OF PNEUMONIA VS PE AND POSSIBLE NEED FO VQ SCAN, GIVEN LOVENOX, ROCEPHIN, LR X 2517 ML BOLUS IN [place], NOTED TO BE TACHYCARDIC, WBC: 16.33 H&P: 06-09-19: TRANSFERRED FROM [facility], SEPSIS TEMP: 06-09-19: 99.2 06-11-19: 99.3 06-13-19: 99.6 PULSE: ER 06-09-19: 118, 114, 113, 110, 102 06-09-19: 106, 103 06-10-19: 123, 117, 101, 108 06-11-19: 107, 102 RR: ER 06-09-19: 24, 26, 22 06-09-19: 24 06-10-19: 22, 22, 22 -11-28: 22, 22, 22 WBC: 06-10-19: 16.0 06-11-19: 15.2 CRP: 06-10-19: 36.71 RISK FACTORS: H&P: 06-09-19: TRANSFERRED FROM [facility], SEPSIS PN DR. LYMAN 06-10-19: ACUTE PERICARDITIS, PNEUMONIA, UTI TREATMENTS: ER 06-09-19: NS IVF, AZITHROMYCIN IV MAR 06-09-19: LEVAQUIN IV (This form is maintained as a part of the permanent medical record) 2014 [employer]. All Rights Reserved Bailey Beke, RN [email or web address] Office: [phone] [facility]
--- NOTE | 2019-06-13 13:01 | PQF ---
DATE: 06-13-19 ATTN: DR. LATRICE STEINER Please exercise your independent, professional judgment in responding to the clarification form. Clinical indicators are provided on the bottom of this form for your review Please check appropriate box(s) to clarify if the following diagnosis has been ruled in or ruled out: ACUTE RESPIRATORY FAILURE WITH HYPOXIA [ x ] Ruled in diagnosis [ ] Continue to treat [ x] Resolved [ ] Ruled out diagnosis [ ] Other diagnosis [ ] Unable to determine In addition, please specify: Present on Admission (POA): [x ] Yes [ ] No [ ] Unable to determine For continuity of documentation, please document condition throughout progress notes and discharge summary. Thank You. CLINICAL INDICATORS - SIGNS / SYMPTOMS / LABS: ER NOTES 06-09-19: SOB, 94% ON RA, DX OF SEVERE SEPSIS, PNEUMONIA, R/O PULMONARY EMBOLISM H&P: 06-09-19: LLL PNEUMONIA PN DR. LYMAN 06-10-19: PT HAS DYSPNEA AND HAS TACHYCARDIA, ACUTE RESPIRATORY FAILURE WITH HYPOXIA, ACUTE CAP, ACUTE PERICARDITIS PN DR. WATT 06-11-19: WHEEZING, +SOB, PNEUMONIA WITH CHEST PAIN ACUTE RESPIRATORY DISTRESS RISK FACTORS: ER NOTE 06-09-19: PE R/O, SOB, PATIENT 94% ON 3L [place], L BASILAR OPACITY NOTED ON CHEST X-RAY PERFORMED IN [place], COULDN'T RULE OUT PNA VS VOLUME LOSS, COUGH ER NOTES 06-09-19: SOB, 94% ON RA, DX OF SEVERE SEPSIS, PNEUMONIA, R/O PULMONARY EMBOLISM TREATMENTS: ER NOTE 06-09-19: IVF NS, AZITHROMYCIN IV 06-11-19: DUONEB, LEVAQUIN 06-09-19 (This form is maintained as a part of the permanent medical record) 2014 [employer]. All Rights Reserved [email or web address] Office: [phone] [facility]
--- NOTE | 2019-06-13 13:20 | PQF ---
DATE: 06-13-19 ATTN: DR. LATRICE STEINER Please exercise your independent, professional judgment in responding to the clarification form. Clinical indicators are provided on the bottom of this form for your review Please check appropriate box(s) to clarify if the following diagnosis has been ruled in or ruled out: PULMONARY EMBOLISM [ ] Ruled in diagnosis [ ] Continue to treat [ ] Resolved [ x ] Ruled out diagnosis [ ] Other diagnosis [ ] Unable to determine In addition, please specify: Present on Admission (POA): [ ] Yes [ ] No [ ] Unable to determine For continuity of documentation, please document condition throughout progress notes and discharge summary. Thank You. CLINICAL INDICATORS - SIGNS / SYMPTOMS / LABS: ER NOTE 06-09-19: PE R/O, 94% ON RA, SOB, EVAL FOR CP; DX: SEVERE SEPSIS, PNEUMONIA, R/O PULMONARY EMBOLISM H&P 06-09-19: R/O THROMBOEMBOLIC DISORDER. THE PT ALSO HAS POSSIBILITY OF A PE , THOUGH LESS LIKELY BASED ON OVERALL PICTURE, BUT GIVEN TACHYCARDIA, PLEURITIC CP AND SOB RISK FACTORS: ER NOTE 06-09-19: PE R/O, 94% ON RA, SOB, EVAL FOR CP; DX: SEVERE SEPSIS, PNEUMONIA, R/O PULMONARY EMBOLISM TREATMENTS: H&P 06-09-19: BECAUSE OF RENAL FUNCTION AND IODINE ALLERGY, WE CANNOT DO CT ANGIOGRAPHY AND THAT IS WHY WE WILL OBTAIN V/Q SCAN, LE ULT, AND ECHO (This form is maintained as a part of the permanent medical record) 2014 [employer]. All Rights Reserved [email or web address] Office: [phone] [facility], [place]
--- NOTE | 2019-06-13 20:19 | PDOC.HOSPP ---
- Subjective Encounter Date: 06/13/19 Encounter Time: 14:20 Subjective: Generally feeling better. RODGER persists. No nausea or vomiting, tolerating decent oral intake. No CP/SOB. Sore LUE anticubital fossa area from prior IV site - Objective Vital Signs & Weight: Vital Signs (12 hours) Temp Pulse Pulse Pulse Resp BP BP 06/13/19 19:15 86 16 06/13/19 15:31 97.9 F 93 18 06/13/19 14:21 104 H 103 H 132/68 143/65 H 06/13/19 13:56 74 16 06/13/19 11:39 99.0 F 93 20 BP Pulse Ox 06/13/19 19:15 92 L 06/13/19 15:31 136/63 95 06/13/19 14:21 06/13/19 13:56 95 06/13/19 11:39 131/62 93 L Weight Weight 202 lb 8 oz I&O: 06/12/19 06/13/19 06/14/19 06:59 06:59 06:59 Intake Total 1550 1820 730 Output Total 2450 2240 1650 Balance -900 -420 -920 Result Diagrams: 06/13/19 04:38 06/13/19 04:37 Additional Labs: Accuchecks 06/13/19 06/13/19 06/13/19 17:03 10:42 05:44 POC Glucose 143 H 187 H 142 H 06/12/19 20:43 POC Glucose 161 H Hospitalist ROS - Medication Medications: Active Medications Generic Name Dose Route Start Last Admin Trade Name Freq PRN Reason Stop Dose Admin Hydrocodone Bitart/Acetaminophen 1 tab 06/09/19 13:22 06/10/19 06:12 [place]uffey 5/325 PO 1 tab Q4H PRN Administration Moderate Pain (4-6) Albuterol/Ipratropium 3 ml 06/11/19 19:00 06/13/19 19:15 Duoneb NEB 3 ml [id number] NARINDER Administration Allopurinol 300 mg 06/10/19 09:00 06/13/19 08:23 Zyloprim PO 300 mg DAILY NARINDER Administration Apixaban 5 mg 06/10/19 21:00 06/13/19 08:23 Eliquis PO 5 mg BID NARINDER Administration Colchicine 0.6 mg 06/09/19 21:00 09/04/19 08:23 Colchicine PO 0.6 mg BID NARINDER Administration Famotidine 20 mg 06/10/19 09:00 06/13/19 08:23 Pepcid PO 20 mg DAILY NARINDER Administration Gabapentin 300 mg 06/10/19 08:17 06/11/19 13:41 Neurontin PO 300 mg TID PRN Administration Pain Guaifenesin/Dextromethorphan 15 ml 06/09/19 13:22 06/12/19 12:51 Robitussin Dm PO 15 ml Q4H PRN Administration Cough Levofloxacin 750 mg/ Device 150 mls @ 100 mls/hr 06/09/19 17:00 06/13/19 16: 15 IVPB 150 mls Q2D@1700 NARINDER Administration Insulin Human Isoph/Insulin Regular 60 units 06/10/19 09:00 06/13/19 08:24 Humulin 70/30 SC 60 unit BID NARINDER Administration Insulin Human Lispro 0 units 06/09/19 13:22 06/13/19 11:50 Humalog SC 2 units .MODERATE SLIDING SC PRN Administration Moderate Correctional Scale Insulin Human Lispro 0 units 06/09/19 13:22 06/11/19 20:42 Humalog SC 2 unit .BEDTIME SLIDING SC PRN Administration Bedtime Correctional Scale Latanoprost 1 drop 06/10/19 21:00 06/12/19 20:50 Xalatan 0.005% Ophth Soln EA EYE 1 drp HS NARINDER Administration Metoclopramide HCl 5 mg 06/10/19 09:34 06/10/19 15:54 Reglan IVP 5 mg Q6H PRN Administration .PRN Metoprolol Succinate 50 mg 06/10/19 09:00 06/13/19 08:23 Toprol Xl PO 50 mg DAILY NARINDER Administration Saccharomyces Boulardii 250 mg 06/10/19 09:00 06/13/19 08:23 Florastor PO 250 mg DAILY NARINDER Administration Tramadol HCl 50 mg 06/10/19 08:17 06/13/19 13:53 Ultram PO 50 mg TID PRN Administration Pain - Exam General Appearance: NAD Eye: PERRL ENT: normocephalic atraumatic Neck: supple Heart: RRR Respiratory: CTAB, no wheezes Gastrointestinal: soft, non-tender Extremeties - other findings: BLE edema 1 plus Neurological: no focal deficits, no new deficit Psychiatric: A&O x 3 Hosp A/P (1) Sepsis due to pneumonia Code(s): J18.9 - PNEUMONIA, UNSPECIFIED ORGANISM; A41.9 - SEPSIS, UNSPECIFIED ORGANISM Status: Acute (2) Atrial fibrillation Code(s): I48.91 - UNSPECIFIED ATRIAL FIBRILLATION Status: Acute (3) ARF (acute renal failure) Status: Acute (4) Hypokalemia Code(s): E87.6 - HYPOKALEMIA Status: Acute (5) Acute respiratory failure with hypoxia Code(s): J96.01 - ACUTE RESPIRATORY FAILURE WITH HYPOXIA Status: Acute (6) Community acquired bacterial pneumonia Code(s): J15.9 - UNSPECIFIED BACTERIAL PNEUMONIA Status: Acute (7) Diabetes type 2, controlled Code(s): E11.9 - TYPE 2 DIABETES MELLITUS WITHOUT COMPLICATIONS Status: Chronic (8) Hypertension Code(s): I10 - ESSENTIAL (PRIMARY) HYPERTENSION Status: Chronic - Plan Pulm - Acute resp failure w/hypoxemia, POA, resolving, has weaned off oxygen. 94%on 3L. LLL infiltrate --> complete abx ID- Sepsis (Elevated WBC, RR>20, lactic acidosis) secondary to pulmonary infection/CAP, improving Renal - Worsened today - ARF secondary to diuretics; Lasix d/c, check AML, replete K Cards - continue eliquis, metoprolol Endo - accuchecks/insulin (new) Left antecubital fossa - examined, no obvious infection, offer warm compresses and re-examine tomorrow
[2019-06-13] MEDS: Latanoprost 0.005% Ophth Soln 2.5 ml Bottle EA EYE SCH (20:42)
[2019-06-14 06:40] LABS: Anion Gap 20 mmol/L (10-20); BUN (Urea Nitrogen) 50 mg/dL (9.8-20.1); Calc. Creatinine Clearance 37 mL/min (70-130); Calcium 9.9 mg/dL (7.8-10.44); Carbon Dioxide 27 mmol/L (23-31); Chloride 99 mmol/L (98-107); Estimated GFR-MDRD 24; Glucose 98 mg/dL (83-110); Magnesium 1.8 mg/dL (1.6-2.6); Potassium 3.8 mmol/L (3.5-5.1); Sodium 142 mmol/L (136-145)
[2019-06-14] MEDS ORDERED: Senokot S 8.6-50 MG TAB PO SCH (08:30)
[2019-06-14] MEDS: Colchicine 0.6 MG TAB PO SCH (09:14)
[2019-06-14] MEDS: Apixaban 5 MG TAB PO SCH (09:14)
[2019-06-14] MEDS: Allopurinol 300 MG TAB PO SCH (09:14)
[2019-06-14] MEDS: Famotidine 20 MG TAB PO SCH (09:14)
[2019-06-14] MEDS: HumuLIN 70/30 (300 UNITS/3 ML VIAL) SC SCH (09:14)
[2019-06-14] MEDS: Saccharomyces boulardii 250 MG CAP PO SCH (09:15)
[2019-06-14] MEDS: traMADol HCl 50 MG TAB PO PRN (11:04)
[2019-06-14] MEDS: HumaLOG 300 UNITS/3 ML VIAL SC PRN (11:44)
[2019-06-14 15:21] VITALS: BP 136/63; TEMP 97.9
--- NOTE | 2019-06-15 06:23 | DIS ---
DATE OF ADMISSION: 06/09/2019 DATE OF DISCHARGE: 06/14/2019 PRIMARY CARE PHYSICIAN: Dr. Osmany Lantigua. CHIEF COMPLAINT/REASON FOR ADMISSION: Shortness of breath and chest pain. ADMISSION DIAGNOSES: 1. Pleuritic chest pain. 2. Left lower lobe pneumonia. 3. Type 2 diabetes. 4. Glaucoma. 5. Essential hypertension. 6. Dyslipidemia. 7. Hyperuricemia. 8. Chronic kidney disease, stage 3. DISCHARGE DIAGNOSES: 1. Sepsis secondary to pneumonia, with elevated white blood cell count, respiratory rate greater than 20, lactic acidosis, secondary to pulmonary infection versus community-acquired pneumonia. 2. Acute renal failure secondary to diuretics, stabilized, discharge creatinine 2.0. 3. Paroxysmal atrial fibrillation, with initiation of Eliquis and continuation of metoprolol during hospital stay. 4. Type 2 diabetes, insulin dependent. 5. Acute respiratory failure with hypoxemia, present on admission, with noted oxygen saturation 94% on 3 L oxygen per nasal cannula, 06/09/2019. 6. Left lower lobe infiltrate/community-acquired pneumonia, status post completion of antibiotics. 7. Essential hypertension. 8. History of hyperuricemia, on chronic allopurinol. 9. Hypokalemia, repleted. CONSULTS DURING HOSPITAL STAY: Cardiology, Freddy Fraire MD. STUDIES/PROCEDURES: 1. A 2D echocardiogram 06/10/2019, ejection fraction 55-60 percent, no distinct valvular pathology. Small pericardial effusion instantly noted. 2. Pulmonary perfusion scanning 06/10/2019, low probability for pulmonary embolism. 3. Bilateral lower extremity Dopplers on 06/10/2019. No evidence of deep venous thrombosis. HOSPITAL COURSE: Ms. Miller is a delightful 74-year-old female who resides in the [facility]. She presented with abrupt onset of chest discomfort, pleuritic in nature. Left basilar opacity noted on initial chest x-ray, transferred to our facility for additional evaluation and care. Evidence of leukocytosis with left shift, mildly elevated D-dimer. Initial workup included evaluation for venous thromboembolic disease, which was negative, as above. The patient treated empirically for community-acquired pneumonia, with gradual interval improvement. She did have paroxysmal atrial fibrillation present during hospital stay as well, seen, evaluated by Cardiology, recommendation for ongoing Eliquis and metoprolol. Lower extremity edema present, trial of diuretics given, with interval worsening of renal function, creatinine at the time of discharge is 2.01. She will see Dr. Lantigua in the next one week to 10 days for repeat lab. I have scheduled her metformin and triamterene to restart in a couple of days to help provide additional time for renal recovery. At the time of admission, white blood cell count [id number], it has normalized prior to discharge at 10.6. Hemoglobin is 11.6, platelet count has remained in the normal range. Additional issues mentioned by the patient this morning, left antecubital fossa site of prior IV with some soreness yesterday. I re-examined this this morning. I do not see any pus or evidence of cellulitic process. Encouraged warm compresses to this area of phlebitis. Additionally, received Lovenox injection into the abdomen with lipid dystrophy present, palpable on abdominal exam. I encouraged her to use other sites for insulin administration. Anticipate this will resolve with time. On the day of discharge, I saw and evaluated the patient, spoke with her as well. PHYSICAL EXAMINATION: LUNGS: Clear bilaterally. HEART: Regular. ABDOMEN: Soft with area of lipid dystrophy palpable as above. EXTREMITIES: She has trace bilateral lower extremity edema that is persistent and unchanged. She appears stable for transition home. MEDICATIONS AT DISCHARGE: Are as follows: 1. Eliquis 5 mg p.o. twice daily. 2. Prescription provided for allopurinol 300 mg p.o. once daily, patient to resume on 06/15. 3. Bentyl 20 mg p.o. q.i.d. p.r.n. abdominal discomfort, same as admission. 4. Gabapentin 300 mg p.o. t.i.d., same as admission. 5. Novolin 70/30, 60 units subcu b.i.d., same as admission. 6. Latanoprost one drop to each eye q.p.m. 0.005%, same as admission. 7. Metoprolol succinate 50 mg p.o. once daily, same as admission. 8. Tramadol 50 mg p.o. t.i.d. p.r.n. pain, same as admission. 9. Atorvastatin 20 mg p.o. daily, same as admission. 10. Trulicity 0.75 mg subcu q.7 day, same as admission. 11. Metformin 1000 mg p.o. b.i.d., same as admission, to resume on 06/16/2019. 12. Ambien 10 mg p.o. at bedtime p.r.n. sleep. 13. Triamterene/hydrochlorothiazide 75/50, take half tab p.o. b.i.d., to resume 06/17/2019. 14. We also discussed [id number] nonsedating antihistamines, Flonase, as well as [id number] antitussives to be used as needed for pain for home. 15. Follow up with Dr. Lantigua, the patient has followup appointment scheduled within 1 week to 10 days. DIET: Diabetic. ACTIVITY: As tolerated. TIME SPENT: Time spent on discharge planning 50 minutes. Job ID: [id number]
== END 2019-06-14 17:45 | disposition home or self-care (01) | DRG 871 ==
LOC: ERS 10:21 → ERHOLD 11:57 → 2NO 17:19
PROVIDERS: ADMIT Internal Medicine; ATTEND Internal Medicine
DX: A41.9 Sepsis, unspecified organism (principal); J15.9 Unspecified bacterial pneumonia; J96.01 Acute respiratory failure with hypoxia; N17.9 Acute kidney failure, unspecified; E87.2 Acidosis; N39.0 Urinary tract infection, site not specified; I30.0 Acute nonspecific idiopathic pericarditis; E11.40 Type 2 diabetes mellitus with diabetic neuropathy, unspecified; E11.22 Type 2 diabetes mellitus with diabetic chronic kidney disease; E11.21 Type 2 diabetes mellitus with diabetic nephropathy; N18.3 Chronic kidney disease, stage 3 (moderate); D63.1 Anemia in chronic kidney disease; R41.842 Visuospatial deficit; E87.6 Hypokalemia; G47.00 Insomnia, unspecified; R65.20 Severe sepsis without septic shock; E78.5 Hyperlipidemia, unspecified; I12.9 Hypertensive chronic kidney disease with stage 1 through stage 4 chronic kidney disease, or unspecified chronic kidney disease; M81.0 Age-related osteoporosis without current pathological fracture; N14.1 Nephropathy induced by other drugs, medicaments and biological substances; T50.2X5A Adverse effect of carbonic-anhydrase inhibitors, benzothiadiazides and other diuretics, initial encounter; I48.0 Paroxysmal atrial fibrillation; E79.0 Hyperuricemia without signs of inflammatory arthritis and tophaceous disease; E66.9 Obesity, unspecified; H40.9 Unspecified glaucoma; Z85.51 Personal history of malignant neoplasm of bladder; Z68.38 Body mass index [BMI] 38.0-38.9, adult; Z79.01 Long term (current) use of anticoagulants; Z90.710 Acquired absence of both cervix and uterus; Z79.4 Long term (current) use of insulin; Z98.42 Cataract extraction status, left eye; Z98.41 Cataract extraction status, right eye
CPT/HCPCS: 36415; 36416; 71046; 78582; 80048; 80053; 81001; 83735; 83880; 84484; 84550; 85025; 85027; 85652; 86140; 87086; 93005; 93306; 93970; 94640; 96361; 96365; 96375; 96376; A9540; A9558; J0456; J0696; J1644; J1815; J1940; J1956; J2060; J2270; J2765; J3010; J3490; J7620